=== PATIENT | male | born 1965 | race Caucasian/White ===

== ENCOUNTER 2018-11-24 12:54 | Emergency (ER) | payer BC ==
[2018-11-24] MEDS: CEPHALEXIN 500 MG CAP PO (13:16)
[2018-11-24] MEDS: TRIMETHOPRIM/SULFAMETHOX (DS) TAB PO (13:16)
== END 2018-11-24 13:35 | disposition home or self-care (01) ==
LOC: FTE 12:54
DX: K65.1 Peritoneal abscess (principal); F17.210 Nicotine dependence, cigarettes, uncomplicated; I10 Essential (primary) hypertension
CPT/HCPCS: 99283

== ENCOUNTER 2018-12-04 08:32 | Emergency (ER) | payer BC ==
[2018-12-04] MEDS: LORAZEPAM 1 MG TAB PO (11:44)
== END 2018-12-04 12:26 | disposition home or self-care (01) ==
LOC: FTE 08:32
DX: F41.9 Anxiety disorder, unspecified (principal); I10 Essential (primary) hypertension; Z87.891 Personal history of nicotine dependence
CPT/HCPCS: 99283; Z7610

== ENCOUNTER 2019-01-23 10:03 | Emergency (ER) | payer BC ==
[2019-01-23] MEDS: LIDOCAINE 1% (MDV) 20 ML INJ SC (11:06)
[2019-01-23] MEDS: IBUPROFEN 600 MG TAB PO (11:06)
[2019-01-23] MEDS: HYDROCODONE/APAP (5/325) TAB PO (12:02)
== END 2019-01-23 11:59 | disposition home or self-care (01) ==
LOC: FTE 10:03
DX: L73.2 Hidradenitis suppurativa (principal); L02.215 Cutaneous abscess of perineum; I10 Essential (primary) hypertension; F17.210 Nicotine dependence, cigarettes, uncomplicated
CPT/HCPCS: 10061; 99283-25

== ENCOUNTER 2019-01-27 08:49 | Emergency (ER) | payer BC | END 2019-01-27 12:07 | disposition home or self-care (01) | LOC: FTE 08:49 | DX: Z48.01 Encounter for change or removal of surgical wound dressing (principal); I10 Essential (primary) hypertension; Z87.891 Personal history of nicotine dependence | CPT/HCPCS: 99281 ==

== ENCOUNTER 2019-02-05 10:45 | Emergency (ER) | payer BC ==
[2019-02-05] MEDS: KETOROLAC 60 MG INJ IM (12:16)
[2019-02-05] MEDS: KETOROLAC 30 MG INJ IV (12:28)
[2019-02-05] MEDS: DEXAMETHASONE 10 MG/ML 1 ML INJ IV (12:28)
[2019-02-05] MEDS ORDERED: CEFTRIAXONE 1 GM INJ IM (12:30)
[2019-02-05] MEDS ORDERED: LIDOCAINE 2% (MDV) 20 ML INJ INJ (12:30)
[2019-02-05] MEDS: CEFTRIAXONE 1 GM/50 ML (PMX) 50 ML IVPB (12:39)
== END 2019-02-05 14:04 | disposition home or self-care (01) ==
LOC: FTE 10:45
DX: L73.2 Hidradenitis suppurativa (principal); Z87.891 Personal history of nicotine dependence
CPT/HCPCS: 96372; 96374; 96375; 99284-25

== ENCOUNTER 2019-02-08 18:16 | Emergency (ER) | payer BC | END 2019-02-08 19:47 | disposition left against medical advice (07) | LOC: FTE 19:47 | DX: L73.2 Hidradenitis suppurativa (principal) | CPT/HCPCS: 99282 ==